=== PATIENT | female | born 1965 | race Two or more races ===

== ENCOUNTER 2024-04-01 03:39 | Emergency (ER) | payer MEDICAID, OTHER ==
[~2024-04-01] VITALS: Ht 160 cm; Wt 63.5 kg
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
[2024-04-01] MEDS: SILVER SULFADIAZINE 1 % TOPICAL CREAM 50GM TOP ONE (04:44)
[2024-04-01] MEDS: TETANUS-DIPTH-ACEL PERTUSSIS 0.5ML SYR Tdap IM ONE (04:44)
--- NOTE | 2024-04-01 04:57 | DVH ---
XY L CLAVICLE COMPLETE XRAY, HISTORY: R/O FB PROXIMAL CLAVICLE TECHNICAL DATA: AP and AP cephalic views were obtained of the left clavicle. COMPARISON: None IMPRESSION: No acute fracture of the left clavicle visualized. No evidence of dislocation. Wire like structure is noted superimposing the medial right upper chest, of unknown etiology.
--- NOTE | 2024-04-01 04:57 | DVH ---
XY L HIP COMPLETE XRAY INDICATION: PAIN/INJURY TECHNICAL DATA: Frontal and frog lateral views were obtained of the left hip. COMPARISON: None IMPRESSION: There are severe degenerative changes of the left hip joint with loss of the superior joint space and osteophytes with shortening of the humeral neck. Possible subcapital fracture is difficult to exclud e. Right hip prosthesis is present. The pubic rami appear intact. CT is recommended.
[2024-04-01 05:05] VITALS: BP 167/115; PULSE 95; RESP 17; TEMP 98.7; O2SAT 98
[2024-04-01] MEDS: ACETAMINOPHEN 500 MG TAB or CAP PO ONE (06:02)
--- NOTE | 2024-04-01 06:17 | DVH ---
INDICATION: Possible subcapital fracture ON X-RAY COMPARISON: None TECHNIQUE: CT of the left hip was performed without contrast. Volume transverse images were obtained and reconstructed in multiple planes using bone and soft tissue algorithms. All CT scans at this medical facility are performed using dose modulation techniques as appropriate t o a performed exam including the following: Automated exposure control was utilized; adjustment of th e MA and/or KV according to patient size; and use of iterative reconstruction technique. Radiation Dose Information: CT Dose: CTDI volume is 13.3 mGy. Dose-length product is 353.3 mGy*cm FINDINGS: There are severe degenerative changes of the left hip joint with complete loss of the superior joint space, large subchondral cystic change of the acetabulum and femoral head, sclerosis, and small osteo phytes. No evidence of acute fracture or dislocation. The visualized pubic rami appear unremarkable. IMPRESSION: No acute fracture or dislocation of the left hip. Severe degenerative changes.
== END 2024-04-01 06:55 | disposition home or self-care (01) ==
LOC: ER 03:39
DX: S40.012A Contusion of left shoulder, initial encounter (principal); M16.12 Unilateral primary osteoarthritis, left hip; X58.XXXA Exposure to other specified factors, initial encounter; Y93.89 Activity, other specified; Y92.89 Other specified places as the place of occurrence of the external cause; Y99.8 Other external cause status
CPT/HCPCS: 16000; 73000; 73502; 73700; 90471; 90715

== ENCOUNTER 2024-06-09 16:21 | Emergency (ER) | payer MEDICAID ==
[~2024-06-09] VITALS: Ht 160 cm; Wt 65.4 kg
--- NOTE | 2024-06-09 16:56 | ED.PDOC ---
Eye-HPI HPI Comments 58 year old female presents to the ED with chief complaint of throat lesion. Patient reports that she has noticed a white lesion on the back of her throat for the past few days. Patient was noted during triage to have a blood pressure of 185/125. Patient relays that she has not seen a PCP in 3 years and has never been diagnosed with hypertension. Patient states she currently uses NTG at home. Patient denies any SOB, chest pain, N/V, dizziness, headache, or blurred vision. Chief Complaint: Sore Throat Time Seen by MD: 16:53 Primary Care Provider: DENIES Reviewed Notes: Nurses Notes, Medications, Allergies Allergies: Coded Allergies: NO KNOWN ALLERGIES (Unverified , 06/09/24) Information Source: Patient Mode of Arrival: Ambulatory Timing: Days Duration: Since onset Prehospital treatment: None Quality: Pain, White Mouth Location: Pharynx Oropharynx: Red Onset: Spontaneous Past Medical History PAST MEDICAL HISTORY: Denies Past Medical History (Other): Patient utilizes nitroglycerin for a nonspecific cardiac concern. Surgical History: Denies all surgeries CHIEF CARDIOPULMONARY TECHNOLOGIST History: No Pertinent CHIEF CARDIOPULMONARY TECHNOLOGIST History Family History Family History: Reviewed,noncontributory to illness Social History Smoker: Non-Smoker Alcohol: Denies ETOH Use Drugs: Denies Drug Use Lives In: Home Constitutional: denies: chills, diaphoresis, fatigue, fever, malaise, sweats, weakness, others EENTM: reports: throat pain; denies: blurred vision, double vision, ear bleeding, ear discharge, ear drainage, ear pain, ear ringing, eye pain, eye redness, hearing loss, mouth pain, mouth swelling, nasal discharge, nose bleeding, nose congestion, nose pain, photophobia, tearing, throat swelling, voice changes, others Respiratory: denies: cough, hemoptysis, orthopnea, SOB at rest, shortness of breath, SOB with excertion, stridor, wheezing, others Cardiovascular: denies: chest pain, dizzy spells, diaphoresis, Dyspnea on exertion, edema, irregular heart beat, left arm pain, lightheadedness, palpitations, PND, syncope, others Gastrointestinal: denies: abdomen distended, abdominal pain, blood streaked bowels, constipated, diarrhea, dysphagia, difficulty swallowing, hematemesis, melena, nausea, poor appetite, poor fluid intake, rectal bleeding, rectal pain, vomiting, others Genitourinary: denies: abnormal vagina bleeding, burning, dyspareunia, dysuria, flank pain, frequency, hematuria, incontinence, pain, , vagina discharge, urgency, others Neurological: denies: dizziness, fainting, headache, left sided numbness, left sided weakness, numbness, paresthesia, pre-existing deficit, right sided numbness, right sided weakness, seizure, speech problems, tingling, tremors, weakness, others Musculoskeletal: denies: back pain, gout, joint pain, joint swelling, muscle pain, muscle stiffness, neck pain, others Integumetry: denies: bruises, change in color, change in hair/nails, dryness, laceration, lesions, lumps, rash, wounds, others Allergic/Immunocompromised: denies: Difficulty Healing, Frequent Infections, Hives, Itching, others Hematologic/Lymphatic: denies: anemia, blood clots, easy bleeding, easy bruising, swollen glands, others Endocrine: denies: excessive hunger, excessive sweating, excessive thirst, excessive urination, flushing, intolerance to cold, intolerance to heat, unexplained weight gain, unexplained weight loss, others Psychiatric: denies: anxiety, bipolar disorder, depression, hopeless, panic disorder, schizophrenia, sleepless, suicidal, others All Other Systems: Reviewed and Negative Physical Exam General Appearance: Mild Distress (Moderate distress due to throat concerns.), Normal HEENT: Pharynx Normal, TMs Normal, Other (Patient displays a small pimple like lesion noted to the posterior oropharyngeal region. Very mild erythema. No edema. Airway is patent. No tonsillar pillar involvement.) Neck: Full Range of Motion, Non-Tender, Normal, Normal Inspection Respiratory: Chest Non-Tender, Lungs Clear, No Accessory Muscle Use, No Respir atory Distress, Normal Breath Sounds Cardiovascular: No Edema, No JVD, No Murmur, No Gallop, Normal Peripheral Pulses, Regular Rate/Rhythm Breast Exam: Deferred Gastrointestinal: No Organomegaly, Non Tender, No Pulsatile Mass, Normal Bowel Sounds, Soft Genitalia: Deferred Pelvic: Deferred Rectal: Deferred Extremities: No calf tenderness, Normal capillary refill, Normal inspection, Normal range of motion, Non-tender, No pedal edema Neurologic: Alert, No Motor Deficits, Normal Affect, Normal Mood, No Sensory Deficits Cerebellar Function: Normal Reflexes: Normal Skin: Dry, Normal Color, Warm Lymphatic: No Adenopathy Was a procedure done? Was a procedure done?: No EENT DIFF Eye: N/A Sore Throat: Other (Streptococcal pharyngitis, pharyngitis, hypertension, hypertensive urgency) X-Ray, Labs, Meds, VS Vital Signs Date Time Temp Pulse Resp B/P (MAP) Pulse Ox O2 Delivery O2 Flow Rate FiO2 06/09/24 17:51 99.0 103 19 161/113 (129) 97 99.0 06/09/24 17:51 103 17 97 Room Air 06/09/24 16:30 99.3 120 18 185/125 (145) 97 99.3 Lab Test 06/09/24 17:44 06/09/24 17:03 06/09/24 16:48 Range/Units Group A Streptococcus Rapid Negative White Blood Count 6.7 4.4-10.8 10^3/uL Red Blood Count 4.25 4.0-5.20 10^6/uL Hemoglobin 13.7 12.2-16.2 g/dL Hematocrit 40.6 36.0-46.0 % Mean Corpuscular Volume 95.7 80.0-100.0 fL Mean Corpuscular Hemoglobin 32.2 H 28.0-32.0 pg Mean Corpuscular Hemoglobin Concent 33.7 32.0-36.0 g/dL Red Cell Distribution Width 14.1 11.8-14.3 % Platelet Count 304 140-450 10^3/uL Mean Platelet Volume 7.1 6.9-10.8 fL Neutrophils (%) (Auto) 51.7 37.0-80.0 % Lymphocytes (%) (Auto) 40.5 10.0-50.0 % Monocytes (%) (Auto) 6.7 0.0-12.0 % Eosinophils (%) (Auto) 0.6 0.0-7.0 % Basophils (%) (Auto) 0.5 0.0-2.0 % Neutrophils # (Auto) 3.5 1.6-8.6 10 ^3/uL Lymphocytes # (Auto) 2.7 0.4-5.4 10 ^3/uL Monocytes # (Auto) 0.4 0-1.3 10 ^3/uL Eosinophils # (Auto) 0 0-0.8 10 ^3/uL Basophils # (Auto) 0 0-0.2 10 ^3/uL Nucleated Red Blood Cells 0.1 % Sodium Level 142 136-145 mmol/L Potassium Level 3.5 3.5-5.1 mmol/L Chloride Level 107 98-107 mmol/L Carbon Dioxide Level 25 20-31 mmol/L Anion Gap 10 5-15 Blood Urea Nitrogen 7 L 9-23 mg/dL Creatinine 0.64 0.550-1.02 mg/dL Glomerular Filtration Rate Calc 101 >90 mL/min BUN/Creatinine Ratio 10.9 10.0-20.0 Serum Glucose 139 H 74-106 mg/dL Calcium Level 10.3 8.7-10.4 mg/dL Urine Color Light-yellow Yellow Urine Clarity Clear Clear Urine pH 5.0 5.0-9.0 Urine Specific [place] 1.011 1.001-1.035 Urine Protein Negative Negative Urine Ketones Negative Negative Urine Blood Negative Negative /uL Urine Nitrite Negative Negative Urine Bilirubin Negative Negative Urine Urobilinogen Normal Negative mg/dL Urine Leukocyte Esterase Trace Negative /uL Urine RBC <1 0 - 4 /hpf Urine Microscopic WBC 3 0-5 /HPF Urine Squamous Epithelial Cells None seen <5 /hpf Urine Bacteria None seen None Seen /hpf Urine Glucose Trace Normal mg/dL X-Ray, Labs, Meds, VS Comment All studies performed the ED were evaluated by me personally. Strep swab was unremarkable for any streptococcal concerns and serum and urinalysis was unremarkable for any systemic concerns. Patient appears to have a small lesion of the throat that should resolve on its own. More concerning was the patient's blood pressure. Patient was given her one dose of clonidine and blood pressure started to improve. Patient refused the 2nd dose of blood pressure medication and states that she wants to be discharged. Patient will be advised to follow up with the primary care provider. Time of 1ST Reevaluation: 20:44 Reevaluation 1ST: Improved Consultation: PCP Patient Education/Counseling: Diagnosis, Treatment Family Education/Counseling: Diagnosis, Treatment, No Family Present Departure 1 Departure Time of Disposition: 20:44 Impression: Primary Impression: Viral pharyngitis Additional Impression: Hypertension Disposition: 01 HOME / SELF CARE / HOMELESS Condition: Fair Additional Instructions: Advised patient follow up with the primary care provider for discussions related to her unmedicated hypertension concerns. Tylenol and or Motrin as needed for pain relief. Discharged With: Self, Friend Critical Care Note Critical Care Time?: No Stability Stability form required: No Heart Score Heart Score: Heart Score Response (Comments) Value History N/A 0 EKG N/A 0 Age N/A 0 Risk Factors N/A 0 Troponin N/A 0 Total 0 I personally scribed for SHERITA RAMSAY PAC ([email or web address]) on 06/09/24 at 16:56. Electronically submitted by Ruperto Olivera ([email or web address]). SHERITA RAMSAY PAC Jun 09, 2024 16:56
[2024-06-09 17:12] LABS: Urine Bacteria None Seen /hpf (None Seen)
[2024-06-09 17:27] LABS: Urine Blood Negative /uL (Negative); Urine Clarity Clear (Clear); Urine Color Light-Yellow (Yellow); Urine Protein, UAD Negative (Negative); Urine Specific Gravity 1.011 (1.001-1.035); Urine Squamous Epithelial Cell None Seen /hpf (<5); Urine Urobilinogen Normal (Negative); Urine WBC 3 /HPF (0-5)
[2024-06-09 17:48] LABS: Basophils # (auto) 0 10 ^3/uL (0-0.2); Basophils % (auto) 0.5 % (0.0-2.0); Eosinophils # (auto) 0 10 ^3/uL (0-0.8); Eosinophils % (auto) 0.6 % (0.0-7.0); Hematocrit 40.6 % (36.0-46.0); Hemoglobin 13.7 g/dL (12.2-16.2); Lymphocytes # (auto) 2.7 10 ^3/uL (0.4-5.4); Lymphocytes % (auto) 40.5 % (10.0-50.0); Mean Corpuscular Hemoglobin 32.2 pg (28.0-32.0); Mean Corpuscular Hgb Conc. 33.7 g/dL (32.0-36.0); Mean Corpuscular Volume 95.7 fL (80.0-100.0); Monocytes # (auto) 0.4 10 ^3/uL (0-1.3); Monocytes % (auto) 6.7 % (0.0-12.0); Neutrophils # (auto) 3.5 10 ^3/uL (1.6-8.6); Neutrophils % (auto) 51.7 % (37.0-80.0); Nucleated Red Blood Cells % 0.1 %; Platelet Count (auto) 304 10^3/uL (140-450); Red Blood Cells 4.25 10^6/uL (4.0-5.20); Red Cell Distribution Width 14.1 % (11.8-14.3); White Blood Cell 6.7 10^3/uL (4.4-10.8)
[2024-06-09 17:51] VITALS: BP 161/113; PULSE 103; RESP 17; TEMP 99; O2SAT 97
[2024-06-09] MEDS: cloNIDine HCL 0.1 MG TAB PO ONE ×2 (17:51→20:17)
[2024-06-09 17:53] LABS: Chloride 107 mmol/L (98-107); Sodium 142 mmol/L (136-145)
[2024-06-09 17:54] LABS: Anion Gap 10 (5-15); Carbon Dioxide 25 mmol/L (20-31)
[2024-06-09 17:55] LABS: Calcium 10.3 mg/dL (8.7-10.4)
[2024-06-09 17:59] LABS: BUN/Creatinine Ratio 10.9 (10.0-20.0)
[2024-06-09 18:01] LABS: Blood Urea Nitrogen 7 mg/dL (9-23); Glucose 139 mg/dL (74-106); Potassium 3.5 mmol/L (3.5-5.1)
[2024-06-09 18:52] LABS: Rapid Strep A Screen-Throat Negative
== END 2024-06-09 21:27 | disposition home or self-care (01) ==
LOC: ER 16:21
DX: J02.8 Acute pharyngitis due to other specified organisms (principal); B97.89 Other viral agents as the cause of diseases classified elsewhere; I10 Essential (primary) hypertension
CPT/HCPCS: 36415; 80048; 81001; 85025; 87070; 87880